=== PATIENT | male | born 1945 | race Caucasian/White ===

== ENCOUNTER 2018-10-18 15:29 | Inpatient (IN) ==
--- NOTE | 2018-10-18 15:49 | EKG Report ---
Test Performed on : 10/18/2018 3:45:59 PM Test Reason : PALPITATIONS Blood Pressure : / mmHG Vent. Rate : 151 BPM Atrial Rate : 144 BPM P-R Int : 000 ms QRS Dur : 118 ms QT Int : 328 ms P-R-T Axes : 000 -15 -07 degrees QTc Int : 519 ms Atrial fibrillation. with rapid ventricular response. with premature ventricular or aberrantly conduc stevie complexes. Incomplete right bundle branch block Nonspecific ST and T wave abnormality Abnormal ECG When compared with ECG of 11-AUG-2017 10:01, Atrial fibrillation. has replaced Sinus rhythm. Vent. rate has increased BY 75 BPM Unconfirmed Result
--- NOTE | 2018-10-18 16:08 | Diag Imaging Result Doc PS360 ---
EXAM: CHEST-2 VIEWS HISTORY: SOB TECHNIQUE: Chest two views COMPARISON: 08/11/2017 FINDINGS: The lungs are well expanded. The heart is not enlarged. Sternal wires are present. The vessels are not distended. There are no infiltrates. No pleural effusions. IMPRESSION: No acute abnormality. Electronically signed by Ken Kelly 10/18/2018 4:05 PM
[2018-10-18] MEDS ORDERED: NS 1,000 ML IV ONE (18:15)
[2018-10-18 18:24] LABS: BASO# 0.04 X1000 (0.0-0.2); BASO% 0.4 % (0.0-0.8); EOS# 0.34 X1000 (0.0-0.7); EOS% 3.4 % (0.0-10.0); HEMATOCRIT 49.9 % (42.0-52.0); IMM GRAN# 0.02 X1000 (0.0-0.04); IMM GRAN% 0.2 % (0.0-0.5); LYMPH# 3.48 X1000 (1.2-3.4); LYMPH% 34.4 % (20.5-51.1); MCH 30.9 PG (27-31); MCHC 34.1 g/dL (33-37); MCV 90.7 FL (81-99); MONO# 1.22 X1000 (0.11-0.59); MONO% 12.1 % (1.7-9.3); MPV 10.8 FL (7.4-10.4); NEUT# 5.02 X1000 (1.4-6.5); NEUT% 49.5 % (42.2-75.2); PLT 262 X1000 (130-400); RDW 13.1 % (11.5-14.5); WBC 10.12 X1000 (4.8-10.8)
--- NOTE | 2018-10-18 18:26 | PROVIDER DOCUMENTATION ---
HPI-General Adult - General Chief Complaint: Palpitations Stated Complaint: A FIB Time Seen by Provider: 10/18/18 18:04 Source: patient Allergies/Adverse Reactions: Patient Allergies Allergy/AdvReac Type Severity Reaction Status Date / Time No Known Allergies Allergy Verified 10/18/18 18:23 Home Medications: Home Medication List Medication Instructions Recorded Confirmed Last Taken Type Cholecalciferol (Vitamin D3) 1,000 unit PO BID 08/11/17 08/11/17 Unknown History [Vitamin D3] Citalopram Hydrobromide [Celexa] 40 mg PO DAILY 08/11/17 08/11/17 Unknown History Gabapentin 300 mg PO TID 08/11/17 08/11/17 Unknown History Hydrocodone/APAP 7.5 mg/325 mg 1 ea PO Q6H PRN PRN #20 tab 08/11/17 Unknown Rx [Duarte-7.5] LOVAstatin [Mevacor] 40 mg PO DAILY 08/11/17 08/11/17 Unknown History Loratadine [Claritin] 10 mg PO DAILY 08/11/17 08/11/17 Unknown History Lorazepam [Ativan] 1 mg PO Q6H PRN PRN 08/11/17 08/11/17 Unknown History Metformin [Glucophage] 500 mg PO BID 08/11/17 08/11/17 Unknown History Metoprolol Succinate [Toprol Xl] 25 mg PO DAILY 08/11/17 08/11/17 Unknown History Niacin 500 mg PO DAILY 08/11/17 08/11/17 Unknown History - History of Present Illness -Gen Adult Nature of Presenting Problems: THIS IS A 73 YEAR OLD MALE WITH MEDICAL HISTORY OF TYPE 2 DIABETES MELLITUS, ORTHOSTATIC HYPOTENSION, AND NM WHO IS STATES POST 3V BYPASS AND 2 STENTS PLACEMENT WAS INSTRUCTED BY HIS PCP TO COME IN TODAY FOR ATRIAL FIBRILLATION WITH RAPID VENTRICULAR RATE. PER PATIENT, HE STARTED HAVING DIZZINESS YESTERDAY AROUND NOON AND THAT'S WHY HE WENT TO THE PRIMARY CARE PROVIDER. DENIES FEVER, CHILL, NIGHT SWEATS, BLURRY VISION, EAR PAIN, RHINORRHEA, SORE THROAT, CHEST PAIN, PALPITATION, DYSPNEA, ABDOMINAL DISCOMFORT, NAUSEA, VOMITING , DIARRHEA, CONSTIPATION, MYALGIA, ARTHRALGIA, NEW RASH/LESION, AND HEAT OR COLD INTOLERANCE. Review of Systems - Adult - REVIEW OF SYSTEMS - ADULT ROS:: unobtainable per condition Constitutional: reports: no symptoms reported Eyes: reports: no symptoms reported Ears, Nose, Mouth & Throat: reports: no symptoms reported Cardiovascular: reports: no symptoms reported Respiratory: reports: no symptoms reported Gastrointestinal: reports: no symptoms reported Genitourinary: reports: no symptoms reported Musculoskeletal: reports: no symptoms reported Integumentary: reports: no symptoms reported Neurological: reports: dizziness/vertigo Psychiatric: reports: no symptoms reported Endocrine: reports: no symptoms reported Hematologic/Lymphatic: reports: no symptoms reported Allergic/Immunologic: reports: no symptoms reported Past History - Adult - PAST MEDICAL HISTORY-ADULT Review of Records: reports: Old Records Reviewed Physical Exam-General - PHYSICAL EXAM-ADULT Initial Vital Signs Reviewed: Yes - CONSTITUTIONAL General Appearance: appears well, alert, no apparent distress - EYES Eyes: PERRL/EOMI - HEAD, EARS, NOSE, MOUTH & THROAT HENMT: normocephalic/atraumatic, moist mucous membranes, normal ENT inspection - NECK Neck: non-tender, full range of motion, supple - RESPIRATORY Respiratory: chest non-tender, lungs clear, normal breath sounds, no pleuratic chest pain, no respiratory distress, no accessory muscle use - CARDIOVASCULAR Cardiovascular: no edema, no gallop, no JVD, no murmur, tachycardia (IRREGULAR) - GASTROINTESTINAL (ABDOMEN) Abdominal Exam: normal bowel sounds, non tender, soft - MUSCULOSKELETAL Back Exam: normal inspection, no CVA tenderness, no vertebral tenderness Extremity: normal range of motion, non-tender, normal gait, normal inspection - SKIN Integumentary: normal color, normal turgor, warm/dry - NEUROLOGIC Neurologic: grossly normal - PSYCHIATRIC Psych/Mental Status: normal mood/affect, normal thought content, normal thought process, oriented x 3 Progress - PLAN OF CARE/RESULTS Progress/Plan/Lab Results: Vital Signs - 8 hr 10/18/18 15:38 10/18/18 18:11 Temperature 97.9 F Pulse Rate 104 H 154 H Respiratory Rate 18 16 Blood Pressure 123/109 105/85 O2 Sat by Pulse Oximetry 98 92 L Orders Category Date Time Status Cardiac Monitoring DIRECTED Care 10/18/18 15:41 Active Oxygen Therapy- ED Nursing DIRECTED Care 10/18/18 15:41 Active Saline Loc NOW Care 10/18/18 15:41 Active CHEST-2 VIEWS [RAD] Stat Exams 10/18/18 15:[address] HEAD W/O CONTRAST [CT] Stat Exams 10/18/18 18:16 Ordered CALCIUM [CHEM] Stat Lab 10/18/18 18:18 Ordered CBC WITH ELECTRONIC DIFF [HEME] Stat Lab 10/18/18 15:52 Results CK PROFILE [SP CHEM] Stat Lab 10/18/18 15:52 Received COMPREHENSIVE METABOLIC PANEL [CHEM] Stat Lab 10/18/18 15:52 Received INFLUENZA SCREEN A/B Stat Lab 10/18/18 18:20 Uncollected MAGNESIUM [CHEM] Stat Lab 10/18/18 18:18 Ordered PHOSPHORUS [CHEM] Stat Lab 10/18/18 18:18 Ordered PRO B-NATRIURETIC PEPTIDE Stat Lab 10/18/18 15:52 Received PROTIME WITH INR [COAG] Stat Lab 10/18/18 15:52 Received PTT [COAG] Stat Lab 10/18/18 15:52 Received TROPONIN T Stat Lab 10/18/18 15:52 Received TSH Stat Lab 10/18/18 18:18 Ordered 0.9% Sodium Chloride Inj [Ns] 1,000 ml Med 10/18/18 18:15 Active IV 999 mls/hr CP/SOB/Palp >45 yrs of Age Stat Oth 10/18/18 15:41 Ordered EKG [EKG] Stat Ther 10/18/18 15:41 Draft Result Diagrams: 10/18/18 15:52 10/18/18 15:52 - REASSESSMENT Reassessment #1 Time Reassessed: 21:22 Status: other (INITIAL HR IN 150 TO 160S AND RESPONDED TO LOPRESSOR 5MG IV X1.) Reassessment #2 Time Reassessed: 21:25 Status: other (SPOKE TO HOSPITALIST; APPRECIATE THEIR ASSISTANCE. PATIENT HR CURRENTLY IN 100S TO 110S) - EKG 1 Time of EKG reading by physician:: 15:45 EKG Read and Signed by:: Suly Dean EKG Interpretation (*Must complete 3 of following elements*): Abnormal Rate: 151 Rhythm: ATRIAL FIBRILLATION WITH RAPID VENTRICULAR RESPONSE [place]: normal QRS: normal [place] Interval: shortened ST Wave: normal - XRAY 1 XRAY Study: Chest ([facility] [address], [address], [place] [address] Department of Imaging Patient: LEANDRA MONSIVAISADM Date: MR#: [id number] : 1945DM Status: PRE ERAcct#: [id number] Age/Sex: 73/MRoom/Bed: Loc: ED Ordering Physician: Prerna Rios MD Family Physician: Jamie Campbell MD Reason for Procedure: SOB Signed EXAM: CHEST-2 VIEWS HISTORY: SOB TECHNIQUE: Chest two views COMPARISON: 08/11/2017 FINDINGS: The lungs are well expanded. The heart is not enlarged. Sternal wires are present. The vessels are not distended. There are no infiltrates. No pleural effusions. IMPRESSION: No acute abnormality. Electronically signed by Ken Kelly 10/18/2018 4:05 PM 10/18/18 160 Interpreting Physician: Ken Kelly MD Dictated Date/Time: 10/18/18 1605 cc: Prerna Rios MD; Jamie Campbell MD) - CT/MRI 1 MRI Study: Head ([facility] [address] [facility], [address], [place] [address] Department of Imaging Patient: DARIANA MONSIVAIS Date: MR#: [id number] : 1945DM Status: REG ERAt#: [id number] Age/Sex: 73/MRoom/Bed: Loc: ED Ordering Physician: Suly Dean MD Family Physician: Jamie Campbell MD Reason for Procedure: NEW ATRIAL FIBRILLATION + DIZZINESS ____ Signed EXAM: CT HEAD W/O CONTRAST INDICATION: NEW ATRIAL FIBRILLATION + DIZZINESS TECHNIQUE: This exam was performed using automated exposure control, adjustment of mA or kV according to patient size, and/or use of iterative reconstruction technique. COMPARISON: None. FINDINGS: There is mild diffuse brain atrophy. There is no definite acute infarct given the limited sensitivity of CT versus MRI. There is no discrete intracranial mass, mass effect, or intracranial hemorrhage. There is mild ethmoid and maxillary sinus mucosal disease. Surrounding soft tissues and bony structures are essentially unremarkable, otherwise. IMPRESSION: Mild diffuse brain atrophy. No definite acute intracranial pathology by CT. Electronically signed by Denis Centeno 10/18/2018 7:21 PM 10/18/181920 Interpreting Physician: Denis Centeno MD Dictated Date/Time: 10/18/181917 cc: Suly Dean MD; Jamie Campbell MD) Departure - Departure Date of Disposition Decision: 10/18/18 Time of Disposition Decision: 21:27 DIAGNOSIS: Atrial fibrillation with rapid ventricular response Disposition: ADMITTED INPATIENT 09 Certified Medical Emergency: Emergent Condition: Fair Referrals and Follow-Ups: Jamie Campbell MD [Primary Care Provider] - - Critical Care Note This patient required my direct & personal management of CC.: No Attestation - Physician/ BERNIE Attestation Patient care was provided by Advanced Practice Provider:: No The physician spent face to face time with patient:: Yes Advanced Practice Provider documentation review:: Supervising physician onsite and consulted in the evaluation and care of this patient. The physician did have a face to face encounter with the patient.
[2018-10-18 18:47] LABS: MAGNESIUM 2.3 mg/dL (1.5-2.7); PHOSPHORUS 3.3 mg/dL (2.7-4.5)
[2018-10-18 18:49] LABS: AGAP 16; ALB/GLOB RATIO 1.8; ALBUMIN 4.3 g/dL (3.5-5.0); ALKALINE PHOSPHATASE 54 U/L (32-122); BUN 19 mg/dL (8-22); CALCIUM 8.8 mg/dL (8.8-10.2); CHLORIDE 99 mmol/L (98-107); CK PROFILE 31 U/L (24-204); COSMO 284; ESTIMATED GFR > 60; GLUCOSE 233 mg/dL (70-104); GOT 13 U/L (10-34); GPT 17 U/L (10-44); POTASSIUM 4.5 mmol/L (3.5-5.1); SODIUM 137 mmol/L (136-145); TCO2 22 mmol/L (25-35); TOTAL BILIRUBIN 0.53 mg/dL (0.20-1.00); TOTAL PROTEIN 6.7 g/dL (6.3-8.3)
[2018-10-18 18:51] LABS: INR 0.94; PROTIME 13.3 Seconds (11.0-16.0); PTT 24.7 Seconds (22.3-41.8)
[2018-10-18] MEDS ORDERED: LOPRESSOR IV ONE (18:52)
--- NOTE | 2018-10-18 19:22 | Diag Imaging Result Doc PS360 ---
EXAM: CT HEAD W/O CONTRAST INDICATION: NEW ATRIAL FIBRILLATION + DIZZINESS TECHNIQUE: This exam was performed using automated exposure control, adjustment of mA or kV according to patient size, and/or use of iterative reconstruction technique. COMPARISON: None. FINDINGS: There is mild diffuse brain atrophy. There is no definite acute infarct given the limited sensitivity of CT versus MRI. There is no discrete intracranial mass, mass effect, or intracranial hemorrhage. There is mild ethmoid and maxillary sinus mucosal disease. Surrounding soft tissues and bony structures are essentially unremarkable, otherwise. IMPRESSION: Mild diffuse brain atrophy. No definite acute intracranial pathology by CT. Electronically signed by Denis Centeno 10/18/2018 7:21 PM
[2018-10-18] MEDS ORDERED: LANOXIN IV ONE (21:32)
[2018-10-18] MEDS ORDERED: LOPRESSOR PO ONE (22:07)
[2018-10-18 23:43] LABS: URINE SOURCE CLEAN CATCH
[2018-10-18 23:49] LABS: BILIRUBIN URINE NEGATIVE (NEGATIVE); BLOOD URINE NEGATIVE (NEGATIVE); COLOR YELLOW; GLUCOSE URINE NEGATIVE (NEGATIVE); KETONE URINE NEGATIVE (NEGATIVE); LEUKOCYTES URINE NEGATIVE (NEGATIVE); NITRITE URINE NEGATIVE (NEGATIVE); PROTEIN URINE NEGATIVE (NEGATIVE); SP GRAVITY URINE 1.009; TURBIDITY URINE CLEAR (CLEAR); UR EPITHELIAL CELLS <10 /HPF (<10); URINE BACTERIA NEGATIVE /HPF; URINE RBC <10 /HPF (<10); URINE WBC <10 /HPF (<10); UROBILINOGEN URINE NORMAL (NORMAL)
[2018-10-19] MEDS: LANOXIN IV SCH ×2 (05:27→12:38)
[2018-10-19] MEDS ORDERED: TYLENOL PO PRN (05:27)
[2018-10-19] MEDS ORDERED: ZOFRAN IV PRN (05:27)
[2018-10-19] MEDS ORDERED: NS 1,000 ML IV SCH (05:27)
[2018-10-19] MEDS ORDERED: ELIQUIS PO ONE (05:27)
[2018-10-19 06:43] LABS: BASO# 0.04 X1000 (0.0-0.2); BASO% 0.5 % (0.0-0.8); EOS# 0.38 X1000 (0.0-0.7); EOS% 4.9 % (0.0-10.0); HEMATOCRIT 47.2 % (42.0-52.0); HEMOGLOBIN 15.8 g/dL (14.0-18.0); LYMPH# 2.97 X1000 (1.2-3.4); LYMPH% 38.5 % (20.5-51.1); MCH 30.6 PG (27-31); MCHC 33.5 g/dL (33-37); MCV 91.3 FL (81-99); MONO# 0.75 X1000 (0.11-0.59); MONO% 9.7 % (1.7-9.3); MPV 10.4 FL (7.4-10.4); NEUT# 3.57 X1000 (1.4-6.5); NEUT% 46.4 % (42.2-75.2); PLT 210 X1000 (130-400); RBC 5.17 XMIL (4.7-6.1); RDW 13.1 % (11.5-14.5); WBC 7.71 X1000 (4.8-10.8)
[2018-10-19 07:13] LABS: AGAP 12; BUN 15 mg/dL (8-22); CALCIUM 7.9 mg/dL (8.8-10.2); CHLORIDE 102 mmol/L (98-107); CHOLESTEROL 164 mg/dL (0-200); COSMO 280; CREATININE 0.7 mg/dL (0.7-1.2); ESTIMATED GFR > 60; GLUCOSE 167 mg/dL (70-104); HDL 33 mg/dL (35-55); LDL 85 mg/dL; MAGNESIUM 2.3 mg/dL (1.5-2.7); POTASSIUM 4.3 mmol/L (3.5-5.1); SODIUM 138 mmol/L (136-145); TCO2 24 mmol/L (25-35); TRIGLYCERIDES 228 mg/dL (39-160); VLDL 46 mg/dL
[2018-10-19 08:14] LABS: HEMOGLOBIN A1C 7.2 % (4.8-6.0)
[2018-10-19] MEDS: ASPIRIN EC PO SCH (09:29)
[2018-10-19] MEDS: HUMALOG SUBQ SCH ×4 (09:29→20:03)
[2018-10-19] MEDS ORDERED: DESYREL PO PRN (10:20)
--- NOTE | 2018-10-19 10:52 | CARDIOLOGY CONSULTATION ---
DATE: 10/19/2018 CHIEF COMPLAINT ON PRESENTATION: Dizziness. HISTORY OF PRESENT ILLNESS: Mr. Ortega is a 73-year-old male with a history of coronary bypass normally followed by Dr. Yarbrough. He carries a history of coronary disease with previous bypass, as well as significant orthostatic hypotension. Last visit was May 2018. He is pending evaluation by the [facility]. Over the last 48 hours or so, he has had significant lightheadedness that seems to be worse than what he has had previously. He denies any overt heart racing, but he has noted when he checked his heart rate and blood pressure that he had some irregularity in the rate. The patient does have a history of orthostatic hypotension with occasional falls. These seemed to be mostly controlled falls, in which he is able to catch himself and has not suffered any significant injuries. He denies any bleeding issues. He previously was on beta-blockers, but these were stopped over time secondary to intolerance due to the orthostatic hypotension. PAST MEDICAL HISTORY: 1. Significant for coronary artery disease with coronary bypass. Last cardiac catheterization was in December 2016. On that study, the left main had a 60% tubular lesion. The LAD was occluded after a long septal coat cutter which provided collaterals to the PDA. The LAD was reperfused via a patent ROSETTA. 2. Circumflex had a patent stent in the midportion extending into the main OM. There was only 10% in-stent stenosis. The vein graft to the obtuse marginal was occluded. 3. The right coronary artery was occluded in the proximal portion with an occluded vein graft as well. There were [id number]-[id number] collaterals providing circulation to the right coronary. The ejection fraction on that study was estimated at 50%. 4. Orthostatic hypotension pending evaluation in the [facility] managed on fludrocortisone. 5. Right bundle branch block. 6. Hypertension. 7. Hyperlipidemia. 8. Diabetes. 9. Syncope. FAMILY HISTORY: Significant for hypertension. REVIEW OF SYSTEMS: A 10 system review of systems is negative, except for those things mentioned in HPI. PHYSICAL EXAMINATION: Vital Signs: Patient is afebrile. His heart rates are in the 90s to low 100s. Blood pressure 151/93. General: He is in no acute distress. HEENT: Oropharynx is moist. Normal dentition. Eye examination shows pink conjunctivae, white sclerae. Neck: Examination shows no obvious thyromegaly or thyroid tenderness. Cardiovascular: He sounds to be in an irregularly irregular rhythm. He has no obvious murmurs. He has no S3. He has no lower extremity edema. No carotid bruits. Chest: Exam sounds clear bilaterally. He has no increased work of breathing. Abdomen: Soft, nontender, nondistended. He has no obvious organomegaly. Skin Exam: Warm and dry throughout without any rashes. Neurological: He is moving all extremities well. He has no lateralizing deficits. Psychiatric: He is alert, oriented and pleasant. He has normal mood and affect. PERTINENT DATA: His electrocardiogram on the at 1545 hours seems to show rapid atrial fibrillation. Right bundle branch block is present. PVC versus aberrantly conducted beat was noted on this study. His chest x-ray shows no evidence of acute abnormalities. His lab data shows a white count of 7.7, hematocrit 47, platelet count 210. His sodium is 138, potassium 4.3, BUN 15, creatinine 0.7. Cardiac enzymes are negative. His proBNP was 2300. His LDL was 85. His TSH 6.15 and free T4 1.35. ASSESSMENT: Mr. Ortega is a 73-year-old gentleman with new onset atrial fibrillation. PLAN: We will recheck his EKG to evaluate his QT interval. I will consider addition of sotalol 80 mg b.i.d. as the patient has had intolerance to medications such as beta-blockers in the past. So, perhaps he may tolerate the sotalol. In addition he seems to have had more symptoms in atrial fibrillation than previously. I have had a discussion with him extensively about his fall risk and bleeding. The patient would tend to err on the side of using the anticoagulation to reduce his stroke risk. Patient has a CHADS-VASc score of 2 for age and diabetes. was present in the room. We will follow up on the echo and his current EKG. cc: Geovani Bain MD
--- NOTE | 2018-10-19 11:33 | PROGRESS NOTE ---
DATE: 10/19/2018 INTERVAL HISTORY: Mr. Ortega is a 73-year-old man who comes in with complaints of dizziness from his primary care provider's office where he was found to have atrial fibrillation with rapid ventricular rate. The night team/hospitalist team history and physical is pending. I obtained the history from the ER records after interaction with the patient. Overnight, the patient was started on intravenous fluids, metoprolol and apixaban. His heart rate on presentation was in 130s to 140s; it has come down to 90s to 100s now. SUBJECTIVE: Patient denies any chest pain. He, however, does feel a little short of breath when he tries to get up. He does have history of postural hypotension and dizziness. He denies lower extremity edema, and he denies known prior history of heart failure. He states in the past he did have irregular heart rhythm, however, but states that he was not diagnosed with atrial fibrillation. is at bedside. CURRENT VITAL SIGNS: Reveal temperature of 98.4, pulse of 99 per minute, respiratory rate 26 per minute, blood pressure 150/90, saturating 95% on room air. PHYSICAL EXAMINATION: General: He does not appear in any acute distress. Oral cavity is moist. Air entry bilaterally equal. No wheeze, rhonchi, crackles. Cardiovascular: S1, S2 normal. Irregularly irregular. No murmur, rub, or gallop. Abdomen is soft, nontender. No hepatosplenomegaly. No lower extremity edema. Neurologic: Alert, oriented x3. LABORATORY DATA: Lab evaluation suggests no leukocytosis. Normal hemoglobin, hematocrit, and platelet. Normal electrolytes with normal kidney function. Hemoglobin A1c of 7.2. Influenza screen on admission was negative. IMAGING: On admission, chest x-ray did not detect any acute abnormalities. Head CT had mild diffuse brain atrophy without any abnormalities. ASSESSMENT AND PLAN: 1. Atrial fibrillation with rapid ventricular rate and right bundle branch block which is incomplete. On reviewing previous EKG, he did have a right incomplete right bundle branch block before. The cause of his current atrial fibrillation is unclear; however, he did have prior history of coronary artery bypass grafting and coronary artery stenting in 2004. I appreciate Cardiology's recommendation about rate control versus rhythm control. Based on documentation, the patient is awaiting another EKG to have sotalol started on the patient. Continue Eliquis for anticoagulation for primary prevention of stroke. 2. Follow up with echocardiogram. 3. History of postural hypotension and dizziness. Continue home fludrocortisone and meclizine. 4. History of hyperlipidemia. Continue home aspirin. Statin. 5. History of anxiety. Continue home trazodone and citalopram. 6. Chronic pain. Continue home gabapentin. DISPOSITION: The patient remains inside the hospital as we await heart rate control. Plan of care discussed with the patient and his at bedside. All of their questions have been answered. I am awaiting Cardiology recommendation about starting beta-blockers, metoprolol or sotalol. cc: Telly Delong MD
--- NOTE | 2018-10-19 12:17 | EKG Report ---
Test Performed on : 10/19/2018 10:31:56 AM Test Reason : afib Blood Pressure : / mmHG Vent. Rate : 105 BPM Atrial Rate : 117 BPM P-R Int : 000 ms QRS Dur : 122 ms QT Int : 376 ms P-R-T Axes : 000 -07 004 degrees QTc Int : 496 ms Wide QRS rhythm. with premature supraventricular complexes. and with occasional premature ventricular complexes. Right bundle branch block Abnormal ECG When compared with ECG of 18-OCT-2018 15:45, (Unconfirmed) Wide QRS rhythm. has replaced Atrial fibrillation. Confirmed by Gonsalo Baum MD ([id number]) on 10/20/2018 7:01:46 AM
--- NOTE | 2018-10-19 12:30 | HISTORY AND PHYSICAL ---
PRIMARY CARE PHYSICIAN: Jamie Campbell MD COMPUTER PROJECT MANAGER: Dr. Hunter Yarbrough REASON FOR ADMISSION: Presyncopal spells, palpitations and worsening postural lightheadedness for the last 2 days. HISTORY OF PRESENT ILLNESS: Mr. Indra Ortega is a 70-year-old man with past medical history of coronary artery disease status post CABG and stenting, type 2 diabetes, hyperlipidemia and orthostatic hypotension. He has a longstanding history of occasional postural lightheadedness, but he has noticed over the last 2 days that the degree of lightheadedness has gotten worse to the point that on a few occasions he has almost blacked out. What is a little different from usual is that he has noticed some accompanying palpitations, but no chest pain, no extremity redness or pain, no orthopnea or PND or leg swelling. Two weeks ago he contracted a presumed viral upper respiratory illness and last week he was given 2 different doses of depo steroid injections 5 days apart. He did take [id number] cold remedies 2 weeks ago, but over the last 1 week he has not. In addition to that, he was prescribed Amoxil. The patient denies any headache, no focal neurological complaints. REVIEW OF SYSTEMS: Notable for chronic diarrhea secondary to a prior colectomy. No vomiting, no bleeding from any orifice. He denies any cough or fever at this time. No change in his home medications. Twelve system review was done. Positive findings per HPI. ALLERGIES: No known allergies. HOME MEDICATIONS: As of now they have not been reconciled. DATA: White count 10,000, hemoglobin 17, hematocrit 49, platelets 262,000, normal differential. Glucose 233, BUN 19, creatinine 1.0. Troponins negative. CK normal. ProBNP 2300. TSH is 6, but free T4 is normal. PTT is normal. Head CT does not show any acute intracranial abnormalities, although there is some mild diffuse atrophy. Chest film: No acute intrathoracic abnormality. EKG reviewed by me showed atrial fibrillation with occasional PVCs, right bundle-branch block, nonspecific ST-T wave changes. PHYSICAL EXAMINATION: VITAL SIGNS: Heart rate 154, temperature is 97.9, respirations 16, temperature is 105. His O2 saturation is 92%. GENERAL: He is a pleasant, elderly man who is not in acute distress. He is alert and oriented x3. Normal mood and affect. HEENT: Head is normocephalic, atraumatic. Eyes: PERRLA, EOMI, anicteric, not pale. ENT: Oropharynx exam is grossly normal. NECK: Supple. No JVD, carotid bruit or thyromegaly. CHEST: Clear when auscultated with good air entry in both lung curry. CARDIOVASCULAR: First and second heart sounds are heard. No gallops, murmurs or rubs. Rhythm is irregular. Patient has good distal pulse volumes. ABDOMEN: Slightly protuberant, soft, no tenderness or organomegaly. Bowel sounds are normal. No bruit heard. RECTAL: Exam deferred at this time. EXTREMITIES: They are symmetrical, but irregular. No edema, clubbing or cyanosis. NEUROLOGICAL: No gross focal deficits. SKIN: Intact with no breakdown, lesion or erythema. MUSCULOSKELETAL: Exam is grossly normal. ASSESSMENT: 1. Atrial fibrillation with rapid ventricular rate. 2. Type 2 diabetes, uncontrolled. 3. Orthostatic hypotension. 4. 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 5. Hyperlipidemia. 6. Coronary artery disease. PLAN: Will consult Cardiology to see patient in the a.m. Patient says he is very sensitive to blood pressure medications which partially rules out calcium channel blockers or beta blockers. The patient was given 5 mg of IV metoprolol which brought his heart rate from the 150s to "1- teens." We will continue with low dose p.o. metoprolol to see if his blood pressure can handle this. In the interim, I will also add on digoxin for further rate control. If the patient is very active then the effects of [*]may be negated by sympathetic overdrive, in which case amiodarone would not be a bad choice. Patient's CHADS-VASC2 score qualifies him for anticoagulation and I have started him on Eliquis, except if Dr. Dan, diploma dental assistant on-call, prefers his own preference. An echocardiogram has been ordered and stress test may or may not be performed at the discretion of Dr. Dan. A1c at this time has been ordered and depending on this value these indices need to be optimized with medical therapy. cc: MD Cindy Thrasher MD
[2018-10-19] MEDS: FLORINEF PO SCH (12:40)
[2018-10-19] MEDS: NEURONTIN PO SCH ×2 (14:00→20:04)
[2018-10-19] MEDS ORDERED: LOPRESSOR PO SCH ×2 (14:00)
--- NOTE | 2018-10-19 17:03 | ECHO REPORT ---
ORDER DATE: 10/19/2018 INTERPRETING PHYSICIAN: Dr. Dan REQUESTING PHYSICIAN: CLINICAL INDICATIONS: This is a 73-year-old male with atrial fibrillation with rapid response, palpitations. M-MODE MEASUREMENTS: Right ventricle: cm. Left ventricle end diastole: 5.3 cm. Left ventricle end systole: 4.0 cm. Posterior wall: 1.1 cm. Interventricular septum: 1.4 cm. Left atrium: 4.9 cm. Aortic root: 3.6 cm. SUMMARY OF 2-DIMENSIONAL IMAGIN. The left ventricular systolic function is mildly impaired. Visually the ejection fraction appears to be in the neighborhood of 50%. 2. No wall motion abnormality is noted. 3. There is moderate degree of concentric LVH. The posterior wall measures up to 1.5 cm and the septum up to 1.7 cm. That would be consistent with moderate to severe degree of concentric LVH. 4. The patient is in atrial fibrillation. The cardiac cycles are irregular. Adequate estimation of the ejection fraction is really very difficult. 5. Aortic valve opens normally. There is some thickening of the cusps. Color flow mapping shows mild degree of regurgitation. 6. Mitral valve opens normally. Color flow mapping indicates mild to moderate degree of regurgitation. Again, the patient is in atrial fibrillation. Diastolic function cannot be adequately evaluated. 7. The left atrium is moderately dilated. 8. Pulmonic valve looks normal. Color flow mapping is unremarkable. 9. Tricuspid valve showed mild degree of regurgitation. 10.Inferior vena cava is at the upper limits of normal. 11.Pulmonary pressure estimated in the range of 33 to 38 mmHg. 12.There is no evidence of masses or thrombus. CONCLUSIONS: In summary, this study shows mild impairment of left ventricular systolic function. Ejection fraction in the neighborhood of 50% with moderate to severe concentric LVH. There is moderate degree of mitral regurgitation, mild degree of aortic and tricuspid regurgitation. Clinical correlation is recommended. cc: MD Cindy Rivas MD
[2018-10-19] MEDS ORDERED: LOPRESSOR IV ONE (19:46)
[2018-10-19] MEDS: MEVACOR PO SCH (20:04)
[2018-10-19] MEDS: ELIQUIS PO SCH (20:04)
[2018-10-19] MEDS: VITAMIN D PO SCH (20:04)
[2018-10-19] MEDS: BETAPACE PO SCH (20:04)
[2018-10-20 05:48] LABS: AGAP 11; BUN 14 mg/dL (8-22); CALCIUM 7.2 mg/dL (8.8-10.2); CHLORIDE 105 mmol/L (98-107); COSMO 283; CREATININE 0.8 mg/dL (0.7-1.2); ESTIMATED GFR > 60; GLUCOSE 190 mg/dL (70-104); POTASSIUM 4.1 mmol/L (3.5-5.1); SODIUM 139 mmol/L (136-145); TCO2 23 mmol/L (25-35)
[2018-10-20] MEDS: HUMALOG SUBQ SCH ×4 (06:02→21:03)
--- NOTE | 2018-10-20 08:42 | EKG Report ---
Test Performed on : 10/19/2018 7:54:11 PM Test Reason : afib, sotalol Blood Pressure : / mmHG Vent. Rate : 108 BPM Atrial Rate : 468 BPM P-R Int : 000 ms QRS Dur : 132 ms QT Int : 358 ms P-R-T Axes : 000 -04 001 degrees QTc Int : 479 ms Atrial fibrillation. with rapid ventricular response. Right bundle branch block Abnormal ECG When compared with ECG of 19-OCT-2018 10:31, (Unconfirmed) Atrial fibrillation. has replaced Wide QRS rhythm. Confirmed by Bautista GIRON, Gonsalo Noriega ([id number]) on 10/21/2018 7:07:28 AM
--- NOTE | 2018-10-20 09:10 | EKG Report ---
Test Performed on : 10/20/2018 09:02:42 AM Test Reason : afib, sotalol Blood Pressure : / mmHG Vent. Rate : 085 BPM Atrial Rate : 156 BPM P-R Int : 000 ms QRS Dur : 122 ms QT Int : 386 ms P-R-T Axes : 000 -08 -19 degrees QTc Int : 459 ms Atrial fibrillation. Right bundle branch block Abnormal ECG When compared with ECG of 19-OCT-2018 19:54, (Unconfirmed) No significant change was found Confirmed by Bautista GIRON, Gonsalo Noriega ([id number]) on 10/21/2018 7:09:34 AM
[2018-10-20] MEDS: FISH OIL CONCENTRATE PO SCH (09:51)
[2018-10-20] MEDS: ASPIRIN EC PO SCH (09:51)
[2018-10-20] MEDS: VITAMIN D PO SCH ×2 (09:51→21:04)
[2018-10-20] MEDS: CLARITIN PO SCH (09:51)
[2018-10-20] MEDS: VICON-C PO SCH (09:51)
[2018-10-20] MEDS: BETAPACE PO SCH ×2 (09:51→21:04)
[2018-10-20] MEDS: NIACIN PO SCH (09:52)
[2018-10-20] MEDS: ANTIVERT PO SCH (09:52)
[2018-10-20] MEDS: ELIQUIS PO SCH ×2 (09:52→21:04)
[2018-10-20] MEDS: CELEXA PO SCH (09:52)
[2018-10-20] MEDS: FLORINEF PO SCH (09:52)
[2018-10-20] MEDS: NEURONTIN PO SCH ×3 (09:52→21:06)
[2018-10-20] MEDS: IMODIUM LIQUID PO SCH (12:14)
[2018-10-20] MEDS ORDERED: LOPRESSOR IV PRN (12:54)
--- NOTE | 2018-10-20 15:34 | PROGRESS NOTE ---
DATE: 10/20/2018 INTERVAL HISTORY: Yesterday at nighttime patient's heart rate had jumped to 160 per minute and I had ordered one time dose of 5 mg of metoprolol, following which his heart rate had come down. He also received his sotalol yesterday. SUBJECTIVE: Today patient is denying any chest pain. He is not feeling short of breath. He is denying palpitation. We discussed about his high heart rate and that he may need additional heart rate control medication. Denies nausea, vomiting, abdominal pain. CURRENT VITALS: Temperature 97.6, pulse 93 per minute, respiratory rate 16 per minute, blood pressure 140/86, saturating 97% on room air. PHYSICAL EXAMINATION: General: Does not appear in any acute distress. He was able to go to the bathroom without too much help. HEENT: Oral cavity moist. Lungs: Air entry bilaterally equal. No wheezes, rhonchi, crackles. Cardiovascular: S1, S2 normal. Irregularly irregular. No murmur, rub or gallop. Abdomen: Soft, nontender. No hepatosplenomegaly. No lower extremity edema. Neurologic: Alert and oriented x 3. LABS: BMP suggestive of normal kidney function, hyperglycemia in acceptable range. His lipid profile had LDL cholesterol of 85. ASSESSMENT AND PLAN: 1. New onset atrial fibrillation with rapid ventricular rate, with prior history of right bundle branch block, incomplete. Continue patient on p.o. sotalol. I ordered IV metoprolol p.r.n. for heart rate more than 120 per minute. I will appreciate Cardiology's recommendation about further management or if he would be a candidate for cardioversion. Continue Eliquis for anticoagulation for primary prevention of stroke. His CHADS2 Vasc score is 2. 2. Echocardiogram. Has suggested mild impairment of left ventricular systolic function with ejection fraction of 50% with severe concentric left ventricular hypertrophy and moderate degree of mitral regurgitation. 3. History of postural hypotension and dizziness. Continue home fludrocortisone and meclizine. 4. History of hyperlipidemia and coronary artery disease s/p CABG (2004). Continue home aspirin and statin. 5. History of anxiety. Continue home trazodone and citalopram. 6. Chronic pain and peripheral neuropathy. Continue home gabapentin. 7. Disposition: Patient remains in [facility] for fluctuating heart rate between 110 to 130s. Plan of care was discussed with the patient. I will await cardiology recommendation about need for further rate controlling medication versus cardioversion. All of the patient and his 's questions have been answered satisfactorily. cc: MD RASHEL Mohan
[2018-10-20] MEDS: MEVACOR PO SCH (21:04)
--- NOTE | 2018-10-20 21:34 | CARDIOLOGY PROGRESS NOTE ---
DATE: 10/20/2018 SUBJECTIVE: Mr. Ortega reports he feels better overnight. He has no complaints of palpitations. He is tolerating oral intake. PHYSICAL EXAMINATION: Vital signs: He is afebrile. His heart rates have ranged anywhere from the 70s to the low 100s predominantly. His blood pressure is 139/86. General: He is in no acute distress. Cardiovascular: He is in an irregularly irregular rhythm. His current telemetry shows atrial fibrillation with rate controlled in the 80s. He has no lower extremity edema. Chest: Clear bilaterally. He has no increased work of breathing. Abdomen: Soft, nontender, nondistended. He has no obvious organomegaly. Skin: Warm and dry throughout. PERTINENT DATA: Sodium is 139, potassium 4.1, BUN 14, creatinine 0.8. His EKG shows atrial fibrillation with rate control at 85 beats per minute with a QTc interval of 459. ASSESSMENT: Mr. Ortega is a 73-year-old gentleman who presented with new onset atrial fibrillation. PLAN: We are loading him on sotalol. We will plan for [facility]OS cardioversion in the morning. Risks, benefits, and alternatives have been explained to the patient, and he agrees to proceed. EKGs have been ordered for the morning. We will check a basic chemistry. cc: Geovani Bain MD
[2018-10-21 06:20] LABS: AGAP 10; BUN 15 mg/dL (8-22); CALCIUM 8.3 mg/dL (8.8-10.2); CHLORIDE 104 mmol/L (98-107); COSMO 284; CREATININE 0.9 mg/dL (0.7-1.2); ESTIMATED GFR > 60; GLUCOSE 196 mg/dL (70-104); POTASSIUM 4.3 mmol/L (3.5-5.1); SODIUM 139 mmol/L (136-145); TCO2 25 mmol/L (25-35)
[2018-10-21] MEDS: HUMALOG SUBQ SCH ×4 (06:32→21:41)
--- NOTE | 2018-10-21 07:17 | EKG Report ---
Test Performed on : 10/20/2018 8:57:31 PM Test Reason : afib, sotalol Blood Pressure : / mmHG Vent. Rate : 096 BPM Atrial Rate : 068 BPM P-R Int : 000 ms QRS Dur : 132 ms QT Int : 378 ms P-R-T Axes : 000 -11 -24 degrees QTc Int : 477 ms Atrial fibrillation. with premature ventricular or aberrantly conducted complexes. Right bundle branch block Abnormal ECG When compared with ECG of 20-OCT-2018 09:02, (Unconfirmed) No significant change was found Confirmed by Gonsalo Baum MD ([id number]) on 10/22/2018 6:47:25 AM
[2018-10-21] MEDS ORDERED: DIPRIVAN 1% 0 MG/0 ML BOTTLE ONE (09:35)
[2018-10-21] MEDS ORDERED: SODIUM CHLORIDE 0.9% 10 ML ONE ×2 (09:39→10:48)
[2018-10-21] MEDS ORDERED: XYLOCAINE 2% VISCOUS ONE (09:39)
[2018-10-21] MEDS ORDERED: DIPRIVAN 1% 500 MG/50 ML BOTTLE ONE (09:48)
--- NOTE | 2018-10-21 09:51 | EKG Report ---
Test Performed on : 10/21/2018 09:06:27 AM Test Reason : afib, sotalol Blood Pressure : / mmHG Vent. Rate : 102 BPM Atrial Rate : 340 BPM P-R Int : 000 ms QRS Dur : 132 ms QT Int : 376 ms P-R-T Axes : 000 -06 -24 degrees QTc Int : 490 ms Atrial fibrillation. with rapid ventricular response. with premature ventricular or aberrantly conduc stevie complexes. Right bundle branch block Abnormal ECG When compared with ECG of 20-OCT-2018 20:57, (Unconfirmed) No significant change was found Confirmed by Gonsalo Baum MD ([id number]) on 10/22/2018 6:49:02 AM
[2018-10-21] MEDS ORDERED: CLAVE TWINSITE 32 IN 11959 ONE (09:54)
[2018-10-21] MEDS ORDERED: NS 1,000 ML ONE (09:54)
[2018-10-21] MEDS ORDERED: XYLOCAINE-MPF 2% ONE (10:48)
[2018-10-21] MEDS ORDERED: NEO-SYNEPHRINE ONE (10:48)
--- NOTE | 2018-10-21 11:02 | ECHO REPORT ---
ORDER DATE: 10/21/2018 STUDY: Transesophageal echocardiogram prior to cardioversion. Please see detailed anesthesia records. DESCRIPTION OF PROCEDURE: Informed consent was obtained from the patient. The patient was brought to the cardiac catheterization laboratory. The patient's oropharynx was anesthetized using Cetacaine spray. Propofol was given to anesthetize the patient. A transesophageal probe was easily passed into the esophagus. However, appropriate images could not be obtained. The descending aorta was visualized as well as the transverse arch. The valves and other cardiac structures could not be visualized well. This could be secondary to contact and/or dilated esophagus. As a result, the procedure was abandoned. We will not perform cardioversion either. cc: MD Geovani Dennis MD
--- NOTE | 2018-10-21 11:23 | CARDIOLOGY PROGRESS NOTE ---
DATE: 10/21/2018 SUBJECTIVE: Mr. Ortega did well overnight. He has no complaints. He is not having any palpitations or chest pain. OBJECTIVE: Vital signs: He is afebrile, heart rate 81, his blood pressure is 122/78. General: He is in no acute distress. Cardiovascular: He is in an irregularly irregular rhythm, which is consistent with rate-controlled atrial fibrillation on his telemetry. Currently he has no lower extremity edema. Chest: Exam sounds clear bilaterally. He has no increased work of breathing. Abdomen: Soft and nontender. PERTINENT DATA: He had an echocardiogram on the , showing an ejection fraction of around 50%. Moderate concentric left ventricular hypertrophy. He had a moderate degree of mitral regurgitation. His lab data shows a sodium 139, potassium 4.3, BUN 15, creatinine 0.9. His EKG this morning shows a right bundle branch block. He continues to be an atrial fibrillation. Rate was 96 beats per minute. His QTc was 477. ASSESSMENT: Mr. Ortega is a 73-year-old gentleman who presented in new onset atrial fibrillation. PLAN: He has had issues with significant orthostasis on any sort of antihypertensive medications and is actually on Florinef. For now, we will continue him on sotalol at 80 b.i.d. His EKG appears appropriate. We will plan for LUIS CARLOS cardioversion today with Dr. Ortiz. Risks, benefits, and alternatives have been explained to the patient, and he agrees to proceed. If the test is successful, he can likely be discharged later on today to follow up with Dr. Yarbrough, his primary surveyor [employer]. cc: Geovani Bain MD
[2018-10-21] MEDS: ELIQUIS PO SCH ×2 (11:56→21:41)
[2018-10-21] MEDS: ANTIVERT PO SCH (11:56)
[2018-10-21] MEDS: ASPIRIN EC PO SCH (11:56)
[2018-10-21] MEDS: FLORINEF PO SCH (11:57)
[2018-10-21] MEDS: CELEXA PO SCH (11:57)
[2018-10-21] MEDS: FISH OIL CONCENTRATE PO SCH (11:57)
[2018-10-21] MEDS: IMODIUM LIQUID PO SCH (11:57)
[2018-10-21] MEDS: CLARITIN PO SCH (11:57)
[2018-10-21] MEDS: BETAPACE PO SCH (11:57)
[2018-10-21] MEDS: VICON-C PO SCH (11:57)
[2018-10-21] MEDS: NEURONTIN PO SCH ×3 (11:57→21:41)
[2018-10-21] MEDS: NIACIN PO SCH (11:57)
[2018-10-21] MEDS: VITAMIN D PO SCH ×2 (11:57→21:41)
[2018-10-21] MEDS ORDERED: LOPRESSOR PO ONE (15:47)
--- NOTE | 2018-10-21 16:14 | PROGRESS NOTE ---
DATE: 10/21/2018 OBJECTIVE: Cardiovascular: Regular rate and rhythm. Pulmonary: Bilateral breath sounds. Clear to auscultation. GI: Soft, nontender, nondistended. Bowel sounds were positive. LABORATORY DATA: Potassium 4.3. PROBLEM LIST: 1. Atrial fibrillation with rapid ventricular response. Plan was for transesophageal echocardiogram today, but they could not visualize her left atrial appendage, so procedure was aborted. Plan will be to anticoagulate for 3 to 4 weeks and then consider cardioversion at that time. He is currently on sotalol. QT is slightly prolonged, but he is tolerating it without difficulty; however, his heart rate is still elevated in the low 100s. He is anticoagulated, currently on Eliquis. Echocardiogram shows an intact ejection fraction, so sotalol is appropriate. 2. Postural hypertension. He is on fludrocortisone and meclizine. It is not going to help tachycardia issues, but we will follow. 3. Dyslipidemia continue regular medications. DISPOSITION: Pending cardiac status. I guess if his heart rate stays below 120, he should be stable to go home. Now, recorded heart rates have been below 120 pretty much since he has been admitted, but we will see. Cardiology will let us know hopefully in the next 24 hours about discharge planning. cc: Neil Worthington MD
[2018-10-21] MEDS: MEVACOR PO SCH (21:41)
[2018-10-21] MEDS: LOPRESSOR PO SCH (21:41)
[2018-10-22 05:52] LABS: BASO# 0.04 X1000 (0.0-0.2); BASO% 0.5 % (0.0-0.8); HEMATOCRIT 45.6 % (42.0-52.0); HEMOGLOBIN 15.3 g/dL (14.0-18.0); IMM GRAN# 0.02 X1000 (0.0-0.04); IMM GRAN% 0.2 % (0.0-0.5); LYMPH# 3.01 X1000 (1.2-3.4); LYMPH% 37.5 % (20.5-51.1); MCH 30.6 PG (27-31); MCHC 33.6 g/dL (33-37); MCV 91.2 FL (81-99); MPV 10.8 FL (7.4-10.4); NEUT# 3.75 X1000 (1.4-6.5); NEUT% 46.8 % (42.2-75.2); PLT 177 X1000 (130-400); RDW 12.9 % (11.5-14.5); WBC 8.02 X1000 (4.8-10.8)
[2018-10-22 06:05] LABS: AGAP 8; BUN 14 mg/dL (8-22); CALCIUM 8.3 mg/dL (8.8-10.2); CHLORIDE 103 mmol/L (98-107); COSMO 282; CREATININE 0.8 mg/dL (0.7-1.2); ESTIMATED GFR > 60; GLUCOSE 179 mg/dL (70-104); MAGNESIUM 2.1 mg/dL (1.5-2.7); POTASSIUM 4.3 mmol/L (3.5-5.1); SODIUM 139 mmol/L (136-145); TCO2 28 mmol/L (25-35)
[2018-10-22] MEDS: HUMALOG SUBQ SCH ×3 (06:24→17:19)
--- NOTE | 2018-10-22 06:55 | EKG Report ---
Test Performed on : 10/21/2018 10:13:05 PM Test Reason : afib, sotalol Blood Pressure : / mmHG Vent. Rate : 095 BPM Atrial Rate : 120 BPM P-R Int : 000 ms QRS Dur : 132 ms QT Int : 382 ms P-R-T Axes : 000 000 -26 degrees QTc Int : 480 ms Atrial fibrillation. Right bundle branch block Abnormal ECG When compared with ECG of 21-OCT-2018 09:06, (Unconfirmed) No significant change was found Confirmed by Bautista GIRON, Gonsalo Noriega ([id number]) on 10/22/2018 9:20:41 PM
[2018-10-22] MEDS: LOPRESSOR PO SCH (09:31)
[2018-10-22] MEDS: CLARITIN PO SCH (09:31)
[2018-10-22] MEDS: ASPIRIN EC PO SCH (09:31)
[2018-10-22] MEDS: FLORINEF PO SCH (09:31)
[2018-10-22] MEDS: FISH OIL CONCENTRATE PO SCH (09:31)
[2018-10-22] MEDS: VITAMIN D PO SCH (09:31)
[2018-10-22] MEDS: NIACIN PO SCH (09:31)
[2018-10-22] MEDS: VICON-C PO SCH (09:31)
[2018-10-22] MEDS: IMODIUM LIQUID PO SCH (09:31)
[2018-10-22] MEDS: ANTIVERT PO SCH (09:32)
[2018-10-22] MEDS: CELEXA PO SCH (09:32)
[2018-10-22] MEDS: NEURONTIN PO SCH ×2 (09:32→17:19)
[2018-10-22] MEDS: ELIQUIS PO SCH (09:32)
[2018-10-22 11:19] VITALS: BP 130/70
--- NOTE | 2018-10-22 17:48 | CARDIOLOGY PROGRESS NOTE ---
DATE: 10/22/2018 SUBJECTIVE: Mr. Ortega denies any real palpitations or chest pain. PHYSICAL: Vital Signs: He is afebrile. Heart rate 86. His blood pressure is 130/70. His heart rates have been ranging primarily in the 70s to 80s. General: He is in no acute distress. Cardiovascular: He is in an irregularly irregular rate controlled rhythm. He has no obvious murmurs. No S3. No lower extremity edema. Chest: Clear bilaterally. He has no increased work of breathing. Abdomen: Soft, nontender. PERTINENT DATA: His white count is 8. His hematocrit is 45. Platelet count is 177,000. His sodium is 139, potassium 4.3, BUN 14, creatinine 0.8, magnesium level is 2.1. ASSESSMENT: Mr. Ortega is a 73-year-old gentleman who presented with new-onset atrial fibrillation. PLAN: The patient is on Eliquis. He is on metoprolol at a dose of 25 b.i.d., and I added digoxin today. I do believe he is appropriate for discharge at this time. The patient has had issues with orthostasis, and so adjustment of his metoprolol may be difficult. We attempted a cardioversion during this hospitalization. However, transesophageal echo was not able to adequately visualize the left atrial appendage. Tentative plan at this time will be for him to follow up with Dr. Yarbrough in 3 to 4 weeks, and then consider repeat consideration for transesophageal echo and cardioversion at that time. I believe the patient is appropriate for discharge currently. cc: Geovani Bain MD
--- NOTE | 2018-10-23 02:36 | DISCHARGE SUMMARY ---
ADMISSION DATE: 10/18/2018 DISCHARGE DATE: 10/22/2018 DISCHARGE DIAGNOSES: 1. Atrial fibrillation, with rapid ventricular response. 2. Postural hypertension, chronic. 3. Dyslipidemia. CONSULTATIONS: Cardiology. PROCEDURES: Transesophageal echocardiogram, but no cardioversion. HISTORY AND HOSPITAL COURSE: Briefly, a 73-year-old male presenting with atrial fibrillation with RVR, associated with presyncope. He usually sees Dr. Yarbrough. He was found to be in atrial fibrillation with rapid ventricular response. He was placed on metoprolol and digoxin. [id number] VASc score was elevated, and he was placed on Eliquis. Echocardiogram was obtained, which transthoracic showed an EF of 50%, moderate left ventricular hypertrophy, atrial fibrillation. Diastolic dysfunction could not be adequately evaluated. No masses or thrombi. Moderate mitral regurgitation. The patient was placed on said medicines, but still could not get adequate rate control. Attempts were made to pursue transesophageal echocardiogram and cardioversion, which he underwent on the , but they could not visualize the left atrial appendage to rule out a clot, so procedure was abandoned, cardioversion was abandoned. He was monitored on sotalol, and he clinically improved. Blood pressure at time of discharge was 130/70, heart rate of 86, respiratory rate 22, temperature 97.5 degrees, 97% on room air. PLAN: Will be to discharge, anticoagulate for 3 to 4 weeks,, and then reevaluate for cardioversion at that time. DISCHARGE MEDICATIONS: Tylenol p.r.n., Eliquis 5 b.i.d. new-diagnosis, aspirin 81 daily, cholecalciferol 1000 units b.i.d., Celexa 40 daily, digoxin 125 mcg daily, new, fludrocortisone 1 daily, Neurontin 300 t.i.d., loratadine 10, Mevacor 40 daily, meclizine 25 daily, metformin 1 g b.i.d., niacin 500 daily, fish oil 500 daily, Desyrel 25 at bedtime, vitamin B complex 1 daily. DISCHARGE CONDITION: 1. Stable we will discharge him to family care. TIME SPENT: A 32 minute discharge. cc: MD Jamie Mcgregor MD Peter Johnson, MD
[2018-10-23] MEDS ORDERED: LANOXIN PO SCH (09:00)
== END 2018-10-22 17:21 | disposition home or self-care (01) | DRG 309 ==
LOC: ED 15:29 → SUATTDRO 22:05 → EDIPHOLD 10-19 01:23 → SUATTDRO 10-19 01:23 → 3S 10-19 12:57
PROVIDERS: ATTEND Internal Medicine
CPT/HCPCS: 70450; 71020; 71046; 80048; 80053; 80061; 81001; 82310; 82550; 82948; 83036; 83735; 83880; 84100; 84439; 84443; 84484; 85025; 85610; 85730; 87275; 87276; 87804; 93005; 93010; 93306; 93312; 96361; 96374; 96375; 96376; 99285; A9270; J1160; J1815; J2370; J7030; XXXXX